=== PATIENT | male | born 1990 | race African-American/Black ===

== ENCOUNTER 2019-10-31 04:45 | Emergency (ER) | payer MEDICAID ==
[~2019-10-31] VITALS: Ht 172.7 cm; Wt 64.0 kg
[2019-10-31] MEDS ORDERED: KETOROLAC 30MG/ML VIAL IV ONE (05:00)
[2019-10-31 05:08] LABS: BASOPHILS % 0.7 % (0.0-2.0); EOSINOPHILS % 1.8 % (0.0-5.0); HEMATOCRIT. 41.3 % (42.0-52.0); HEMOGLOBIN. 14.3 g/dL (14.0-18.0); LYMPHOCYTES % 50.8 % (20.0-50.0); MEAN CORPUSCULAR VOLUME 95.2 fL (80.0-94.0); MEAN PLATELET VOLUME 7.1 fl (7.4-10.4); MONOCYTES % 8.9 % (2.0-8.0); NEUTROPHILS % 37.8 % (40.0-76.0); PLATELET 223 x1000/uL (130-400); RED BLOOD CELL COUNT 4.34 mill/uL (4.7-6.1); RED CELL DISTRIBUTION WIDTH 13.5 % (11.6-14.6)
[2019-10-31 05:10] LABS: CHLORIDE 110 mEq/L (98-107)
[2019-10-31 05:23] LABS: PROTHROMBIN TIME 10.5 sec (9.6-11.0)
[2019-10-31 05:33] LABS: ETHANOL BLOOD 380 mg/dL
[2019-10-31] MEDS ORDERED: LIDOCAINE HCL/PF 1% 10 MG/ML 5ML VIAL IJ ONE (05:45)
[2019-10-31] MEDS ORDERED: IOHEXOL-350 100 ML BOTTLE ONE (06:22)
[2019-10-31 06:51] LABS: CLARITY URINE CLEAR (CLEAR); COLOR URINE YELLOW (YELLOW); KETONES URINE NEGATIVE (NEGATIVE); LEUKOCYTE ESTERASE URINE NEGATIVE (NEGATIVE); NITRITE URINE NEGATIVE (NEGATIVE); OCCULT BLOOD URINE TRACE (NEGATIVE); PH URINE 5.5 (4.5-8.0); PROTEIN URINE 1+ (NEGATIVE); SPECIFIC GRAVITY URINE 1.035 (1.005-1.030); UROBILINOGEN URINE 0.2 E.U./dL (0.2-1.0)
[2019-10-31 06:52] VITALS: BP 106/76
== END 2019-10-31 07:45 | disposition left against medical advice (07) ==
LOC: ER 04:45
DX: S11.91XA Laceration without foreign body of unspecified part of neck, initial encounter (principal); F10.129 Alcohol abuse with intoxication, unspecified; Y90.8 Blood alcohol level of 240 mg/100 ml or more; Z88.0 Allergy status to penicillin; X99.9XXA Assault by unspecified sharp object, initial encounter; Y93.89 Activity, other specified; Y92.488 Other paved roadways as the place of occurrence of the external cause
CPT/HCPCS: 36415; 70498; 80053; 80320; 81003; 85025; 85610; 86850; 86900; 86901; 93005; 96374; 99285; J1885; Q9967; G0480